=== PATIENT | female | born 1930 | race Caucasian/White ===

== ENCOUNTER 2017-12-09 22:29 | Emergency (ER) | payer MEDICARE, OTHER ==
--- NOTE | 2017-12-09 23:27 | XRAY Report ---
Procedure Date: 12/09/2017 Accession Number: [id number] / [id number] Procedure: XR - Chest 2 View X-Ray CPT Code: 71620 FULL RESULT: EXAM: CHEST RADIOGRAPHY EXAM DATE: 12/09/2017 11:16 PM. CLINICAL HISTORY: Fever, cough. COMPARISON: None. TECHNIQUE: 2 views. FINDINGS: Lungs/Pleura: Large lung volumes. Bibasilar atelectasis or infiltrate. Minimal if any pleural fluid. No pneumothorax. Mediastinum: Heart size is normal. Tortuous aorta. Other: Osteopenia. Surgical clips in the breasts. IMPRESSION: 1. Large lung volumes with bibasilar atelectasis or infiltrate. RADIA
[2017-12-09 23:31] LABS: BASOPHILS # (AUTO) 0.1 10^3/uL (0.0-0.1); BASOPHILS % (AUTO) 1.2 %; EOSINOPHILS # (AUTO) 0.1 10^3/uL (0.0-0.7); EOSINOPHILS % (AUTO) 1.6 %; HGB - HEMOGLOBIN 13.5 g/dL (12.0-16.0); LYMPHOCYTES # (AUTO) 1.6 10^3/uL (1.5-3.5); LYMPHOCYTES % (AUTO) 18.8 %; MEAN CORPUSCULAR HEMOGLOBIN 30.7 pg (27.0-31.0); MEAN CORPUSCULAR HGB CONC 33.8 g/dL (32.0-36.0); MEAN CORPUSCULAR VOLUME 90.8 fL (81.0-99.0); MEAN PLATELET VOLUME 9.4 fL (7.9-10.8); MONOCYTES # (AUTO) 1.1 10^3/uL (0.0-1.0); MONOCYTES % (AUTO) 12.4 %; NEUTROPHILS # (AUTO) 5.7 10^3/uL (1.5-6.6); PLT - PLATELET COUNT 162 10^3/uL (130-450); RED CELL DISTRIBUTION WIDTH 13.4 % (12.0-15.0); WHITE BLOOD COUNT 8.6 x10^3/uL (4.8-10.8)
[2017-12-09 23:44] LABS: ALBUMIN 3.6 g/dL (3.2-5.5); BILIRUBIN,TOTAL 0.8 mg/dL (0.2-1.0); CALCIUM 9.2 mg/dL (8.5-10.3); CREATININE 0.7 mg/dL (0.4-1.0); TOTAL PROTEIN 7.1 g/dL (6.7-8.2)
[2017-12-09] MEDS: AZITHROMYCIN 250 MG TABLET PO STA (23:45)
--- NOTE | 2017-12-10 00:09 | ED Physician Documentation ---
PD HPI URI - Stated complaint Stated Complaint: FLU SYMPTOMS - Chief complaint Chief Complaint: General - History obtained from History obtained from: Patient - History of Present Illness Timing - onset: How many days ago (3) Timing details: Gradual onset, Still present Associated symptoms: Fever, Dry cough Contributing factors: No: Sick contact, Travel Similar symptoms before: No diagnosis Recently seen: Not recently seen - Additional information Additional information: patient is a well appearing 87 year old female who is presenting to the emergency department for cough. patient states that she has had a cold like symptoms for the last few days. patient states that she has been coughing and had a temperature of 100 degrees today so she thought that she should come get checked out. Review of Systems Constitutional: reports: Fever Eyes: reports: Reviewed and negative Ears: reports: Reviewed and negative Cardiac: denies: Chest pain / pressure Respiratory: reports: Cough. denies: Dyspnea, Hemoptysis, Wheezing GI: denies: Nausea, Vomiting : denies: Dysuria, Frequency, Hesitancy Skin: denies: Rash, Lesions Immunocompromised: denies: Immunocompromised PD PAST MEDICAL HISTORY - Past Medical History Past Medical History: Yes Cardiovascular: Atrial fibrillation Endocrine/Autoimmune: HyPOthyroidism Musculoskeletal: Osteoarthritis - Past Surgical History Past Surgical History: Yes Ortho: Knee replacement HEENT: Tonsil/Adenoidectomy - Present Medications Home Medications: Ambulatory Orders Medication Instructions Recorded Confirmed Azithromycin [Zithromax] 250 mg PO DAILY #4 tablet 12/10/17 - Allergies Allergies/Adverse Reactions: Allergies Allergy/AdvReac Type Severity Reaction Status Date / Time protein C, human Allergy Unknown Verified 12/09/17 22:40 [From Ceprotin ([place])] Sulfa (Sulfonamide Allergy Unknown Verified 12/09/17 22:40 Antibiotics) - Social History Does the pt smoke?: No Smoking Status: Former smoker Does the pt drink ETOH?: No Does the pt have substance abuse?: No - Immunizations Immunizations are current?: Yes PD ED PE NORMAL - Vitals Vital signs reviewed: Yes - General General: Alert and oriented X 3, No acute distress - HEENT HEENT: Atraumatic - Neck Neck: Supple, no meningeal sign, No JVD - Cardiac Cardiac: RRR, No murmur - Respiratory Respiratory: No respiratory distress - Abdomen Abdomen: Soft - Derm Derm: Normal color, Warm and dry - Extremities Extremities: No calf tenderness / cord - Neuro Neuro: Alert and oriented X 3, No motor deficit, Normal speech Eye Opening: Spontaneous Motor: Obeys Commands Verbal: Oriented GCS Score: 15 PD ED PE EXPANDED - Respiratory Respiratory: Decreased breath sounds, Right lower lobe, Left lower lobe Results - Vitals Vitals: Vital Signs - 24 hr 12/09/17 12/10/17 22:34 00:25 Temperature 36.8 C Heart Rate 97 88 Respiratory 18 18 Rate Blood Pressure 145/69 H 142/70 H O2 Saturation 94 96 Oxygen O2 Source Room air - Labs Labs: Laboratory Tests 12/09/17 12/09/17 12/09/17 23:23 23:23 23:23 WBC 8.6 RBC 4.40 Hgb 13.5 Hct 39.9 MCV 90.8 MCH 30.7 MCHC 33.8 RDW 13.4 Plt Count 162 MPV 9.4 Neut # (Auto) 5.7 Lymph # (Auto) 1.6 [place] # (Auto) 1.1 H Eos # (Auto) 0.1 Baso # (Auto) 0.1 Absolute Nucleated RBC 0.00 Nucleated RBC % 0.0 Sodium 133 L Potassium 3.4 L Chloride 99 L Carbon Dioxide 26 Anion Gap 8.0 BUN 21 H Creatinine 0.7 Estimated GFR (MDRD) 79 L Glucose 107 H Lactic Acid 0.7 Calcium 9.2 Total Bilirubin 0.8 AST 26 ALT 20 Alkaline Phosphatase 55 Total Protein 7.1 Albumin 3.6 Globulin 3.5 Albumin/Globulin Ratio 1.0 Lipase 44 - Rads (name of study) chest x-ray Radiology: Final report received (bilateral infiltrate vs atelectasis ) PD MEDICAL DECISION MAKING - ED course Complexity details: reviewed old records, reviewed results, re-evaluated patient , considered differential, d/w patient ED course: Patient was seen and examined at bedside. labs were drawn and chest x-ray was performed. Patient's labs were relatively unremarkable with no leukocytosis or lactic acidosis. patient did have infiltrates vs atelectasis on chest xray. patient was able to tolerate PO without difficulty. Patient was treated with azithromycin. patient was given detailed discharge and follow up instructions. Patient required no further work up and was stable for discharge with outpatient follow up. - Sepsis Event Vital Signs: Vital Signs - 24 hr 12/09/17 12/10/17 22:34 00:25 Temperature 36.8 C Heart Rate 97 88 Respiratory 18 18 Rate Blood Pressure 145/69 H 142/70 H O2 Saturation 94 96 Oxygen O2 Source Room air Departure - Departure Disposition: 01 Home, Self Care Clinical Impression: Pneumonia Condition: Good Instructions: ED Pneumonia Adult Follow-Up: Provider,Other [Primary Care Provider] - Tomorrow Prescriptions: Azithromycin [Zithromax] 250 mg PO DAILY #4 tablet Comments: Your symptoms today are being caused by a pneumonia. You had your first dose of antibiotics and you will need to be on them for the next 4 days. You should make sure you stay well hydrated. You should follow up with your doctor tomorrow or the next day to make sure you are getting better. You may return to the emergency department at any time for new, worsening or uncontrollable symptoms. Discharge Date/Time: 12/10/17 00:25
[2017-12-10 00:26] VITALS: BP 142/70
== END 2017-12-10 00:25 | disposition home or self-care (01) ==
LOC: ED 22:29
DX: J18.9 Pneumonia, unspecified organism (principal); I48.91 Unspecified atrial fibrillation; E03.9 Hypothyroidism, unspecified; M19.90 Unspecified osteoarthritis, unspecified site; Z87.891 Personal history of nicotine dependence
CPT/HCPCS: 36415; 71046; 80053; 83605; 83690; 85025; 87040; 99283; 99284

== ENCOUNTER 2018-01-14 11:05 | Outpatient (CLI) | payer MEDICARE, OTHER | END 2018-01-14 11:06 | disposition home or self-care (01) | LOC: LAB.F 11:05 | PROVIDERS: ATTEND Nurse Practitioner | DX: Z79.01 Long term (current) use of anticoagulants (principal); I48.0 Paroxysmal atrial fibrillation | CPT/HCPCS: 36415; 85610 ==